=== PATIENT | male | born 1950 | race African-American/Black ===

== ENCOUNTER 2016-06-18 13:27 | Inpatient (IN) | payer MEDICARE ==
--- NOTE | ~2016-06-18 | OP ---
Record Of Operation [facility] [address] [place]. [address] NAME: KRISTINA GILMORE : 52 STATUS : ADM IN PAT#: [id number] AGE: 66 ADM/REG DATE : 06/18/16 MR#: [id number] REPORT SERV DATE: 06/19/16 DICTATED BY: NIC SHAH DATE: 06/18/16 REPORT STATUS : Draft TRANSCRIBED BY: MODL DATE: 06/18/16 DATE OF PROCEDURE: 06/18/2016 PREOPERATIVE DIAGNOSES: ST elevated myocardial infarction with left main coronary artery stenosis and persistent angina. POSTOPERATIVE DIAGNOSES: ST elevated myocardial infarction with left main coronary artery stenosis and persistent angina. OPERATIVE PROCEDURE: Emergent coronary artery bypass graft x4 with endoscopic vein harvest utilizing the left internal mammary artery to the LAD artery, reverse saphenous vein graft from aorta to the diagonal artery 1, from the aorta to the obtuse marginal artery, from the aorta to posterior descending artery. Also transesophageal echocardiography. OPERATIVE SURGEON: Nic Shah M.D. ANESTHESIA: General endotracheal anesthesia, AA. DRAINS: Chest tubes placed were 2. Pacing wires placed two on the ventricle and two on the right atrium. PERTINENT HISTORY: The patient is a 66-year-old gentleman, referred by Dr. Gore from the gold leaf laborer with ST elevated myocardial infarction, persistent angina, left main coronary artery stenosis. OPERATIVE FINDINGS: The patient has somewhat diffuse coronary artery disease with no valvular heart disease noted by transesophageal echocardiography. OPERATIVE PROCEDURE: The patient was taken to the operating room, placed in supine position. Anesthesia was obtained. The patient was prepped and draped in usual fashion. Transesophageal echocardiogram was performed demonstrating no significant valvular heart disease. The greater saphenous vein harvested to lower extremities with invasive technique, and those wounds closed in a two-layer fashion. Midline sternotomy incision was made. Sternum was divided. Left internal mammary artery was dissected and found to be in good flow. Heparin was infused and patient started on cardiopulmonary bypass. Cross-clamp was applied. Cardioplegia was infused in antegrade and retrograde fashion over a period of 15 minutes. The posterior descending artery was bypassed with reverse saphenous vein graft in end-to-side fashion. The obtuse marginal artery is bypassed with reversed saphenous vein graft in end-to-side fashion. Then the 1st diagonal artery was bypassed with the reverse saphenous vein graft in the end-to-side fashion. The left internal mammary artery was then used to bypass the LAD artery in the end-to-side fashion. Crossclamp was then placed. The 3 proximal anastomoses sewn to the ascending aorta. Cross-clamp was removed. The hemostasis was noted. Two pacing wires on the right ventricle, two on the right atrium, and two chest tubes were placed. The patient was warmed to 36 centigrade and maintained a sinus bradycardic rhythm. He underwent atrial pacing, was weaned from cardiopulmonary bypass without inotropic support. Protamine sulfate was infused. Hemostasis was adequate. Record Of Operation [facility] [address] [place]. [address] NAME: KRISTINA GILMORE : 51 STATUS : ADM IN [facility]#: [id number] AGE: 66 ADM/REG DATE : 06/18/16 MR#: [id number] REPORT SERV DATE: 06/19/16 DICTATED BY: NIC SHAH DATE: 06/18/16 REPORT STATUS : Draft TRANSCRIBED BY: FLOWER DATE: 06/18/16 Sternum was closed with four sternal cables. Soft tissue was closed in the manner stated above. The patient tolerated the procedure well, was taken back to the ICU in stable condition. ANN/FLOWER Nic Shah M.D. / [id number] CC: MD Daryl Rivers M.D., Ph.D, F.A.C.C.
--- NOTE | ~2016-06-18 | DS ---
Discharge Summary [facility] [address] [facility] [place]. [address] NAME: KRISTINA GILMORE : 52 STATUS : DIS IN PAT#: [id number] AGE: 66 ADM/REG DATE : 06/18/16 MR#: [id number] REPORT SERV DATE: 07/06/16 DICTATED BY: NIC SHAH DATE: 07/06/16 REPORT STATUS : Draft TRANSCRIBED BY: FLOWER DATE: 07/06/16 Data Collection from hospitalization DISCHARGE DIAGNOSES: 1. ST-elevation myocardial infarction. 2. Atrial fibrillation. 3. Coronary artery disease, status post coronary artery bypass grafting x4. 4. Third-degree atrioventricular block (resolved). 5. Hypertension. 6. Tobacco use. 7. Peripheral arterial disease. 8. Hyperlipidemia. CONSULTATIONS: Miguelangel Lancaster M.D. PROCEDURES PERFORMED: 1. Cardiac catheterization on 06/18/2016. 2. Emergent coronary artery bypass grafting x4 with endoscopic vein harvest utilizing the left internal mammary artery to the left anterior descending artery, reverse saphenous vein graft from the aorta to the diagonal artery 1, from the aorta to the obtuse marginal artery, from the aorta to the posterior descending artery and also transesophageal echocardiography on 06/18/2016. MEDICATIONS: Eliquis 5 mg twice a day, aspirin 81 mg daily, Lipitor 40 mg at bedtime, [place] 5/325 one to two tablets every six hours as needed, and Flores-Colace two tablets twice a day. CONDITION AT DISCHARGE: Stable. DISPOSITION: The patient was discharged home on an 1800-calorie cardiac/diabetic diet with activities as instructed. He would follow up with Dr. Daryl Willett two weeks following discharge. He would follow up with Dr. Nic Shah on 07/19/2016. He would follow up at cardiac rehab on 08/03/2016. HOSPITAL COURSE: This is a 66-year-old man who has a history of coronary artery disease, having had an ST elevation myocardial infarction in 2003, treated with percutaneous coronary intervention to the RCA. He developed the abrupt onset of chest pain similar to the 2004 symptoms with precordial chest pain and nausea at 3:00 p.m. He laid down and his symptoms waxed and waned overnight until the day of this admission when his symptoms worsened and he presented to the emergency room for evaluation around 10:00 a.m. His initial EKG showed high anterolateral ST elevation with some reciprocal inferior ST-segment depression. On questioning, the patient initially denied chest pain and repeat EKG demonstrated normalization of high anterolateral ST elevations. This appears to have been due to possible limb lead reversal with new ST elevation in the inferior leads. On further questioning, he said that he continued to feel poorly with vague precordial chest pain and some nausea. He has had no shortness of breath. He denied any palpitations, syncope, orthopnea, or edema. His last documented left ventricular ejection fraction in March of 2014 was 65% with no regional wall motion abnormalities. ACS protocol was started on arrival and he received a heparin bolus of IV heparin drip and aspirin. He was seen by Dr. Montelongo [address] [address] NAME: KRISTINA GILMORE : 51 STATUS : DIS IN PAT#: [id number] AGE: 66 ADM/REG DATE : 06/18/16 MR#: [id number] REPORT SERV DATE: 07/06/16 DICTATED BY: NIC SHAH DATE: 07/06/16 REPORT STATUS : Draft TRANSCRIBED BY: MODL DATE: 07/06/16 Miguelangel Lancaster. Initial troponin was 38. Creatinine level was 1.3. He was felt to have had an ST-elevation myocardial infarction. It was felt that he would need to undergo emergent coronary angiography and possible percutaneous coronary intervention. Serial troponins would be checked. Home medical therapy would be continued as previously outlined with a heparin drip and dual anti-platelet therapy, pending results of the cardiac catheterization. IV hydration would be provided for mild chronic kidney disease. He was admitted to the hospital at this time for further evaluation and treatment. Upon admission, he was taken to the cardiac laboratory scientist where he underwent the above-mentioned procedure. The patient had persistent chest pain. He was found to have left main coronary stenosis including disease involving the right coronary artery. It was felt that this patient would need to undergo emergent cardiac surgical intervention. He had persistent angina, but was hemodynamically stable. He was taken to the operating room where he underwent the above-mentioned procedure. He tolerated this well, and there were no complications. On postop day #1, he had been extubated and chest x-ray was clear. Creatinine level was 1.15. He said he felt better when he was sitting up. Supportive postop care continued. Cardene drip was being provided. We would continue to avoid AV eyal blocking agents. On postop day #2, he was up sitting in a chair. He was pacer dependent. Chest tubes were removed. He did have bilateral basilar rales. Blood pressure was controlled. He had no surgical issues at this time. He seemed to be recovering well. Atorvastatin was started. Pacer settings were adjusted. On 06/22/2016, he had no new complaints. He had no dizziness, chest pain, or shortness of breath. He was passing flatus. O2 saturation was 99% on room air. Wound VAC was in place. On 06/23/2016, heparin drip was started. This would be continued until the pacing wires were removed. His wounds looked okay. Creatinine level was 1.0. He did have a bowel movement. He was tolerating oral intake. The next day, discharge planning was performed. He saturation was 95% on room air. Creatinine level was 1.0. He had no bradycardia overnight. Heparin was held and pacing wires were removed. Heparin would be restarted four hours after pacing wires were removed. He has an ejection fraction of 60%-65%. Telemetry revealed atrial fibrillation in the 70s - low 100s. He had no palpitations or shortness of breath. Aspirin was continued. Statin agent was added. On 06/25/2016, he remained in atrial fibrillation on telemetry. Pacing wires had been removed. He had no further bradyarrhythmias. Eliquis was started. We would consider DC cardioversion if the patient did not spontaneously convert. Beta-martell was held. Third degree AV block had resolved. Discharge instructions were given. Due to his improved and stable condition, he was discharged home with the above-stated instructions. Information collected by: Rachel Lui I submit the above information as my discharge summary. RUSS/MODCuca Nic Shah M.D. / [id number] Discharge Summary [address] [address] NAME: KRISTINA GILMORE : 52 STATUS : DIS IN PAT#: [id number] AGE: 66 ADM/REG DATE : 06/18/16 MR#: [id number] REPORT SERV DATE: 07/06/16 DICTATED BY: NIC SHAH DATE: 07/06/16 REPORT STATUS : Draft TRANSCRIBED BY: FLOWER DATE: 07/06/16 CC: MD Lenny Rivers M.D. Allen E Atchley, M.D.
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
--- NOTE | ~2016-06-18 | PRECARD ---
H&P [facility] [address] [facility] [place]. [address] NAME: KRISTINA BHATT : 52 STATUS : REG ER PAT#: [id number] AGE: 66 ADM/REG DATE : 06/18/16 MR#: [id number] REPORT SERV DATE: 06/18/16 DICTATED BY: MIGUELANGEL JONES DATE: 06/18/16 REPORT STATUS : Draft TRANSCRIBED BY: MODCuca DATE: 06/18/16 DATE OF ADMISSION: 06/18/2016 ADMISSION REASON: ST-elevation CA. HISTORY OF PRESENT ILLNESS: Mr. Bhatt is a 66-year-old male with a known history of coronary artery disease, having had an ST-elevation CA in 2003, treated with PCI to the RCA, who had abrupt-onset chest pain similar to the 2004 symptoms with precordial chest pain and nausea at 3:00 p.m. yesterday. He laid down and his symptoms waxed and waned overnight until today his symptoms worsened and he presented to the ER for further evaluation around 10:00 a.m. His initial EKG showed high anterolateral ST elevation with some reciprocal inferior ST-segment depression. On questioning, the patient initially denied chest pain and a repeat EKG demonstrated normalization of high anterolateral ST elevations; this appears to have been due to possible limb lead reversal with new ST elevation in the inferior leads. On further questioning, he states that he continues to feel poorly with vague precordial chest pain and some nausea. He has had no shortness of breath. He denies palpitations, syncope, orthopnea, or edema. Last documented LVEF in 03/2014 was 65% with no regional wall motion abnormalities. ACS protocol was started on arrival and he received a heparin bolus of IV heparin drip and aspirin. REVIEW OF SYSTEMS: Pertinent positives and negatives as outlined above, all others are negative. PAST MEDICAL HISTORY: 1. CAD, status post CA and PCI in 2003. 2. Peripheral arterial disease with previous iliac stenting. 3. Hypertension. 4. Hyperlipidemia. 5. Tobacco use. HOME MEDICATIONS: 1. Coreg 12.5 mg twice daily. 2. Irbesartan 300 mg daily. 3. Amlodipine 5 mg daily. 4. Aspirin 81 mg daily. 5. Sertraline 100 mg daily, which he was not actively taking due to difficulty obtaining for cost reasons. ALLERGIES: NO KNOWN DRUG ALLERGIES. SOCIAL HISTORY: He is retired. He has ongoing tobacco use at one-half pack per day. He does not consume alcohol or use illegal drugs. FAMILY HISTORY: Significant for CAD. PHYSICAL EXAMINATION: [facility] [id number] [facility] [place]. [address] NAME: KRISTINA BHATT : 52 STATUS : REG ER PAT#: [id number] AGE: 66 ADM/REG DATE : 06/18/16 MR#: [id number] REPORT SERV DATE: 06/18/16 DICTATED BY: MIGUELANGEL JONES DATE: 06/18/16 REPORT STATUS : Draft TRANSCRIBED BY: FLOWER DATE: 06/18/16 VITALS: Temp is afebrile, pulse is 50, respirations 16, and BP is 150/90. MENTAL STATUS: Awake, alert, and oriented x3. PSYCH: Euthymic, normal affect. GENERAL: Well appearing and in no distress. HEENT: Sclerae anicteric, mucous membranes moist and without lesions. NECK: No jugular venous distention. No hepatojugular reflux, carotid upstrokes 2+ and symmetric, there are no carotid or subclavian bruit. LUNGS: Clear to auscultation without wheezes, crackles, or rales. CARDIOVASCULAR: Regular with normal S1 and S2, no murmurs, no S3 or S4, no parasternal lift, PMI is nondisplaced and nonsustained. ABDOMEN: Soft and nontender. Bowel sounds positive and normoactive. No hepatomegaly, no masses, no abdominal bruit. PULSES: Radial and dorsalis pedis pulses 2+ and symmetric. EXTREMITIES: Warm and without edema. SKIN: No clubbing or cyanosis, no rashes or lesions. ACCESSORY DATA: Initial troponin was 38. Creatinine is 1.3. CBC is unremarkable. IMPRESSION: 1. ST-elevation myocardial infarction. 2. Coronary artery disease, status post old myocardial infarction and percutaneous coronary intervention. 3. Hypertension. 4. Hyperlipidemia. 5. Peripheral arterial disease. 6. Tobacco use. PLAN: 1. Emergent coronary angiography and possibly PCI. 2. Serial troponins. 3. Continue home medical therapy as previously outlined with heparin drip and dual antiplatelet therapy pending results of his cardiac catheterization. 4. Labs in a.m. 5. IV hydration for mild CKD. CONSENT: Risks and benefits of cardiac catheterization were discussed with Mr. Bhatt. He was informed of emergent need for cardiac catheterization. The risks include bleeding, infection, vascular access trauma, allergic reaction to contrast dye, and a 1% chance of major complications such as stroke were all covered. After this, informed consent was obtained and he agreed to proceed. MADELIN/FLOWER Miguelangel Jones M.D. [facility] [address] [address] NAME: KRISTINA BHATT : 52 STATUS : REG ER PAT#: [id number] AGE: 66 ADM/REG DATE : 06/18/16 MR#: [id number] REPORT SERV DATE: 06/18/16 DICTATED BY: MIGUEALNGEL JONES. DATE: 06/18/16 REPORT STATUS : Draft TRANSCRIBED BY: FLOWER DATE: 06/18/16 / [id number] CC: Champ Broussard M.D.
[2016-06-18 12:20] LABS: BASOPHILS 0.2 %; BASOPHILS ABSOLUTE 0.02 10/3/uL (0.0-0.16); EOSINOPHILS 0.3 %; EOSINOPHILS ABSOLUTE 0.03 10/3/uL (0.0-0.53); HEMATOCRIT 42.3 % (40.0-51.0); IMMATURE GRANULOCYTES 0.1 %; IMMATURE GRANULOCYTES ABSOLUTE 0.01 10/3/uL (0.0-0.11); LYMPHOCYTES 24.7 %; LYMPHOCYTES ABSOLUTE 2.68 10/3/uL (0.67-4.30); MANUAL DIFF NO %; MEAN CORPUS HGB CONC 35.5 g/dL (32.0-36.0); MEAN CORPUSCULAR HEMOGLOB 31.6 pg (26.0-34.0); MEAN CORPUSCULAR VOLUME 89.2 fL (80-100); MEAN PLATELET VOLUME 10.4 fL (9.2-13.0); MONOCYTES 8.1 %; MONOCYTES ABSOLUTE 0.88 10/3/uL (0.21-1.20); NEUTROPHILS 66.6 %; NEUTROPHILS ABSOLUTE 7.24 10/3/uL (2.02-8.40); PLATELET COUNT 186 10/3/uL (150-400); RBC DISTRIBUTION WIDTH 13.8 % (12.0-16.0); RED CELL COUNT 4.74 10/6/uL (4.7-6.1); WHITE BLOOD CELLS 10.9 10/3/uL (4.5-10.5)
[2016-06-18 12:37] LABS: BUN (BLOOD UREA NITROGEN) 9 MG/DL (6-23); CALCIUM, SERUM 8.8 MG/DL (8.5-10.4); CHLORIDE, SERUM 108 MMOL/L (96-112); CO2 (CARBON DIOXIDE) 28 MMOL/L (24-34); CREATININE 1.31 MG/DL (0.70-1.30); GFR AFRICAN AMERICAN 66 ML/MIN (>=60); GFR NON AFRICAN AMERICAN 57 ML/MIN (>=60); INTERNATIONAL NORMAL RATI 1.1 UNITS (-); PARTIAL THROMBO TIME 30.9 SEC (22.5-37.2); SODIUM, SERUM 141 MMOL/L (135-148)
[2016-06-18 12:39] LABS: GLUCOSE, SERUM 135 MG/DL (60-99); POTASSIUM, SERUM 3.6 MMOL/L (3.5-5.3)
[2016-06-18 12:40] LABS: CHEST PAIN PROFILE TAT 0 Hrs 24 Mins
[~2016-06-18 13:27] MED LIST: ASAB PO; LAN125 PO; LISINOPRIL40 MG PO; LOP50 PO; NITROSTAT0.4 MG SL; NORV5 PO; REG PO; ZOCOR20 PO
[2016-06-18 20:48] LABS: INSTRUMENT SERIAL # 11843
[2016-06-18 20:49] LABS: BE (BASE EXCESS) -4.1 MEQ/L (0 +/- 2.5); CARBOXYHEMOGLOBIN 0.3 % (0-3); HEMOBLOGIN CONTENT 13.3 G/DL (14-18); METHEMOGLOBIN 0.6 % (0-3); MODE SIMV; O2 CONTENT 19.2 VOL% (18-24); OPERATOR ID 32193; PCO2 (CO2 TENSION) 38 MMHG (35-45); PO2 (O2 TENSION) 342 MMHG (79-93); SAMPLE Arterial; TIDAL VOLUME 650 ML; pH 7.36 (7.37-7.43)
[2016-06-18 20:55] LABS: BASOPHILS 0.2 %; BASOPHILS ABSOLUTE 0.02 10/3/uL (0.0-0.16); EOSINOPHILS 0.1 %; EOSINOPHILS ABSOLUTE 0.01 10/3/uL (0.0-0.53); HEMATOCRIT 35.8 % (40.0-51.0); HEMOGLOBIN 12.5 g/dL (13.6-17.8); IMMATURE GRANULOCYTES 0.4 %; IMMATURE GRANULOCYTES ABSOLUTE 0.04 10/3/uL (0.0-0.11); LYMPHOCYTES 11.7 %; LYMPHOCYTES ABSOLUTE 1.31 10/3/uL (0.67-4.30); MANUAL DIFF NO %; MEAN CORPUS HGB CONC 34.9 g/dL (32.0-36.0); MEAN CORPUSCULAR HEMOGLOB 31.2 pg (26.0-34.0); MEAN CORPUSCULAR VOLUME 89.3 fL (80-100); MEAN PLATELET VOLUME 10.4 fL (9.2-13.0); MONOCYTES 6.7 %; MONOCYTES ABSOLUTE 0.75 10/3/uL (0.21-1.20); NEUTROPHILS 80.9 %; NEUTROPHILS ABSOLUTE 9.05 10/3/uL (2.02-8.40); PLATELET COUNT 108 10/3/uL (150-400); RBC DISTRIBUTION WIDTH 13.8 % (12.0-16.0); RED CELL COUNT 4.01 10/6/uL (4.7-6.1); WHITE BLOOD CELLS 11.2 10/3/uL (4.5-10.5)
[2016-06-18 21:02] LABS: INTERNATIONAL NORMAL RATI 1.5 UNITS (-); PARTIAL THROMBO TIME 33.9 SEC (22.5-37.2)
[2016-06-18 21:06] LABS: PROTIME (NOT ORD) 17.9 SEC (12.0-14.5)
[2016-06-18 21:23] LABS: BUN (BLOOD UREA NITROGEN) 8 MG/DL (6-23); CALCIUM, SERUM 8.4 MG/DL (8.5-10.4); CHLORIDE, SERUM 118 MMOL/L (96-112); CO2 (CARBON DIOXIDE) 25 MMOL/L (24-34); CREATININE 1.03 MG/DL (0.70-1.30); GFR AFRICAN AMERICAN 88 ML/MIN (>=60); GFR NON AFRICAN AMERICAN 76 ML/MIN (>=60); GLUCOSE, SERUM 50 MG/DL (60-99); POTASSIUM, SERUM 3.9 MMOL/L (3.5-5.3); SODIUM, SERUM 149 MMOL/L (135-148)
[2016-06-19 01:12] LABS: BE (BASE EXCESS) -4.6 MEQ/L (0 +/- 2.5); CARBOXYHEMOGLOBIN 0.2 % (0-3); DEVICE NC; HCO3 (ACTUAL BICARBONATE) 21.2 MEQ/L (23-27); HEMOBLOGIN CONTENT 13.6 G/DL (14-18); INSTRUMENT SERIAL # 11843; METHEMOGLOBIN 0.6 % (0-3); O2 CONTENT 18.4 VOL% (18-24); OPERATOR ID 32193; PCO2 (CO2 TENSION) 42 MMHG (35-45); PO2 (O2 TENSION) 95 MMHG (79-93); SAMPLE Arterial; pH 7.32 (7.37-7.43)
[2016-06-19 03:33] LABS: HEMATOCRIT 36.3 % (40.0-51.0); HEMOGLOBIN 12.6 g/dL (13.6-17.8); MEAN CORPUS HGB CONC 34.7 g/dL (32.0-36.0); MEAN CORPUSCULAR HEMOGLOB 31.1 pg (26.0-34.0); MEAN CORPUSCULAR VOLUME 89.6 fL (80-100); MEAN PLATELET VOLUME 10.8 fL (9.2-13.0); PLATELET COUNT 130 10/3/uL (150-400); RBC DISTRIBUTION WIDTH 13.9 % (12.0-16.0); RED CELL COUNT 4.05 10/6/uL (4.7-6.1)
[2016-06-19 03:39] LABS: MANUAL DIFF YES %
[2016-06-19 03:46] LABS: BUN (BLOOD UREA NITROGEN) 10 MG/DL (6-23); CALCIUM, SERUM 8.2 MG/DL (8.5-10.4); CHLORIDE, SERUM 118 MMOL/L (96-112); CO2 (CARBON DIOXIDE) 22 MMOL/L (24-34); CREATININE 1.15 MG/DL (0.70-1.30); GFR AFRICAN AMERICAN 77 ML/MIN (>=60); GFR NON AFRICAN AMERICAN 66 ML/MIN (>=60); INTERNATIONAL NORMAL RATI 1.3 UNITS (-); POTASSIUM, SERUM 3.7 MMOL/L (3.5-5.3); PROTIME (NOT ORD) 16.5 SEC (12.0-14.5); SODIUM, SERUM 149 MMOL/L (135-148)
[2016-06-19 03:47] LABS: GLUCOSE, SERUM 81 MG/DL (60-99)
[2016-06-19 04:23] LABS: BAND NEUTROPHILS 2 %; IMMATURE GRANS ABSOLUTE (CALC) 0.23 10/3/uL (0.0-0.11); LYMPHOCYTES 3 %; LYMPHOCYTES ABSOLUTE (CALC) 0.69 10/3/uL (0.67-4.30); METAMYELOCYTES 1 %; MONOCYTES 3 %; MONOCYTES ABSOLUTE (CALC) 0.69 10/3/uL (0.21-1.20); NEUTROPHILS ABSOLUTE (CALC) 21.39 10/3/uL (2.02-8.40); PLATELET ESTIMATE SLT DEC (ADEQUATE); RBC MORPHOLOGY NORM (NORMAL); SEGMENTED NEUTROPHIL (0) 91 %; TOTAL NUCLEATED CELLS 100
[2016-06-19 15:27] LABS: HEMATOCRIT 33.7 % (40.0-51.0); HEMOGLOBIN 11.9 g/dL (13.6-17.8)
[2016-06-19 15:36] LABS: POTASSIUM, SERUM 4.1 MMOL/L (3.5-5.3)
[2016-06-19] MEDS ORDERED: *DENIES (18:08)
[2016-06-20 03:28] LABS: HEMATOCRIT 32.7 % (40.0-51.0); HEMOGLOBIN 11.6 g/dL (13.6-17.8); MEAN CORPUS HGB CONC 35.5 g/dL (32.0-36.0); MEAN CORPUSCULAR HEMOGLOB 31.1 pg (26.0-34.0); MEAN CORPUSCULAR VOLUME 87.7 fL (80-100); MEAN PLATELET VOLUME 10.9 fL (9.2-13.0); PLATELET COUNT 104 10/3/uL (150-400); RBC DISTRIBUTION WIDTH 14.1 % (12.0-16.0); RED CELL COUNT 3.73 10/6/uL (4.7-6.1)
[2016-06-20 03:31] LABS: MANUAL DIFF YES %
[2016-06-20 03:38] LABS: CALCIUM, SERUM 8.6 MG/DL (8.5-10.4); CHLORIDE, SERUM 109 MMOL/L (96-112); CO2 (CARBON DIOXIDE) 23 MMOL/L (24-34); CREATININE 0.92 MG/DL (0.70-1.30); GFR AFRICAN AMERICAN 101 ML/MIN (>=60); GFR NON AFRICAN AMERICAN 87 ML/MIN (>=60); GLUCOSE, SERUM 75 MG/DL (60-99); POTASSIUM, SERUM 4.1 MMOL/L (3.5-5.3)
[2016-06-20 03:39] LABS: BUN (BLOOD UREA NITROGEN) 14 MG/DL (6-23); SODIUM, SERUM 140 MMOL/L (135-148)
[2016-06-20 04:18] LABS: BAND NEUTROPHILS 11 %; IMMATURE GRANS ABSOLUTE (CALC) 0.26 10/3/uL (0.0-0.11); LYMPHOCYTES 7 %; LYMPHOCYTES ABSOLUTE (CALC) 1.82 10/3/uL (0.67-4.30); METAMYELOCYTES 1 %; MONOCYTES 3 %; MONOCYTES ABSOLUTE (CALC) 0.78 10/3/uL (0.21-1.20); NEUTROPHILS ABSOLUTE (CALC) 23.14 10/3/uL (2.02-8.40); PLATELET ESTIMATE SLT DEC (ADEQUATE); SEGMENTED NEUTROPHIL (0) 78 %; TOTAL NUCLEATED CELLS 100
[2016-06-20 04:19] LABS: RBC MORPHOLOGY NORM (NORMAL)
[2016-06-21 04:02] LABS: BASOPHILS 0.1 %; BASOPHILS ABSOLUTE 0.01 10/3/uL (0.0-0.16); EOSINOPHILS 0 %; HEMATOCRIT 32.2 % (40.0-51.0); HEMOGLOBIN 11.5 g/dL (13.6-17.8); IMMATURE GRANULOCYTES 0.4 %; IMMATURE GRANULOCYTES ABSOLUTE 0.08 10/3/uL (0.0-0.11); LYMPHOCYTES 6.4 %; LYMPHOCYTES ABSOLUTE 1.28 10/3/uL (0.67-4.30); MEAN CORPUS HGB CONC 35.7 g/dL (32.0-36.0); MEAN CORPUSCULAR HEMOGLOB 31.3 pg (26.0-34.0); MEAN CORPUSCULAR VOLUME 87.5 fL (80-100); MEAN PLATELET VOLUME 11.1 fL (9.2-13.0); MONOCYTES 5.3 %; MONOCYTES ABSOLUTE 1.05 10/3/uL (0.21-1.20); NEUTROPHILS 87.8 %; NEUTROPHILS ABSOLUTE 17.58 10/3/uL (2.02-8.40); PLATELET COUNT 111 10/3/uL (150-400); RBC DISTRIBUTION WIDTH 13.9 % (12.0-16.0); RED CELL COUNT 3.68 10/6/uL (4.7-6.1)
[2016-06-21 04:06] LABS: MANUAL DIFF NO %
[2016-06-21 04:11] LABS: CALCIUM, SERUM 8.8 MG/DL (8.5-10.4); CHLORIDE, SERUM 106 MMOL/L (96-112); CO2 (CARBON DIOXIDE) 24 MMOL/L (24-34); CREATININE 1.08 MG/DL (0.70-1.30); GFR AFRICAN AMERICAN 83 ML/MIN (>=60); GFR NON AFRICAN AMERICAN 72 ML/MIN (>=60); POTASSIUM, SERUM 4.9 MMOL/L (3.5-5.3); SODIUM, SERUM 137 MMOL/L (135-148)
[2016-06-21 04:12] LABS: BUN (BLOOD UREA NITROGEN) 21 MG/DL (6-23); GLUCOSE, SERUM 138 MG/DL (60-99)
[2016-06-22 03:50] LABS: BASOPHILS 0.1 %; BASOPHILS ABSOLUTE 0.01 10/3/uL (0.0-0.16); EOSINOPHILS 0 %; HEMOGLOBIN 11.5 g/dL (13.6-17.8); IMMATURE GRANULOCYTES 0.3 %; IMMATURE GRANULOCYTES ABSOLUTE 0.04 10/3/uL (0.0-0.11); LYMPHOCYTES 13.9 %; LYMPHOCYTES ABSOLUTE 1.85 10/3/uL (0.67-4.30); MEAN CORPUS HGB CONC 35.9 g/dL (32.0-36.0); MEAN CORPUSCULAR HEMOGLOB 31.8 pg (26.0-34.0); MEAN CORPUSCULAR VOLUME 88.4 fL (80-100); NEUTROPHILS 79.7 %; NEUTROPHILS ABSOLUTE 10.63 10/3/uL (2.02-8.40); PLATELET COUNT 108 10/3/uL (150-400); RBC DISTRIBUTION WIDTH 13.4 % (12.0-16.0); RED CELL COUNT 3.62 10/6/uL (4.7-6.1); WHITE BLOOD CELLS 13.3 10/3/uL (4.5-10.5)
[2016-06-22 03:54] LABS: MANUAL DIFF NO %
[2016-06-22 04:03] LABS: BUN (BLOOD UREA NITROGEN) 20 MG/DL (6-23); CALCIUM, SERUM 8.3 MG/DL (8.5-10.4); CHLORIDE, SERUM 106 MMOL/L (96-112); CO2 (CARBON DIOXIDE) 27 MMOL/L (24-34); CREATININE 1.08 MG/DL (0.70-1.30); GFR AFRICAN AMERICAN 83 ML/MIN (>=60); GFR NON AFRICAN AMERICAN 72 ML/MIN (>=60); GLUCOSE, SERUM 105 MG/DL (60-99); POTASSIUM, SERUM 4.3 MMOL/L (3.5-5.3); SODIUM, SERUM 141 MMOL/L (135-148)
[2016-06-23 04:28] LABS: BASOPHILS 0 %; EOSINOPHILS 0.4 %; EOSINOPHILS ABSOLUTE 0.04 10/3/uL (0.0-0.53); HEMATOCRIT 32.8 % (40.0-51.0); HEMOGLOBIN 11.7 g/dL (13.6-17.8); IMMATURE GRANULOCYTES 0.4 %; IMMATURE GRANULOCYTES ABSOLUTE 0.04 10/3/uL (0.0-0.11); LYMPHOCYTES ABSOLUTE 2.37 10/3/uL (0.67-4.30); MEAN CORPUS HGB CONC 35.7 g/dL (32.0-36.0); MEAN CORPUSCULAR HEMOGLOB 31.5 pg (26.0-34.0); MEAN CORPUSCULAR VOLUME 88.2 fL (80-100); MEAN PLATELET VOLUME 10.4 fL (9.2-13.0); MONOCYTES 9.9 %; MONOCYTES ABSOLUTE 0.94 10/3/uL (0.21-1.20); NEUTROPHILS 64.3 %; NEUTROPHILS ABSOLUTE 6.09 10/3/uL (2.02-8.40); PLATELET COUNT 120 10/3/uL (150-400); RBC DISTRIBUTION WIDTH 13.4 % (12.0-16.0); RED CELL COUNT 3.72 10/6/uL (4.7-6.1); WHITE BLOOD CELLS 9.5 10/3/uL (4.5-10.5)
[2016-06-23 04:29] LABS: MANUAL DIFF NO %
[2016-06-23 04:40] LABS: CALCIUM, SERUM 8.3 MG/DL (8.5-10.4); CHLORIDE, SERUM 106 MMOL/L (96-112); CO2 (CARBON DIOXIDE) 26 MMOL/L (24-34); CREATININE 1.02 MG/DL (0.70-1.30); GFR AFRICAN AMERICAN 89 ML/MIN (>=60); GFR NON AFRICAN AMERICAN 77 ML/MIN (>=60); GLUCOSE, SERUM 92 MG/DL (60-99); POTASSIUM, SERUM 4.1 MMOL/L (3.5-5.3); SODIUM, SERUM 140 MMOL/L (135-148)
[2016-06-23 04:41] LABS: BUN (BLOOD UREA NITROGEN) 15 MG/DL (6-23)
[2016-06-24 01:53] LABS: HEMATOCRIT 30.8 % (40.0-51.0); HEMOGLOBIN 10.9 g/dL (13.6-17.8); MEAN CORPUS HGB CONC 35.4 g/dL (32.0-36.0); MEAN CORPUSCULAR HEMOGLOB 31.1 pg (26.0-34.0); MEAN CORPUSCULAR VOLUME 87.7 fL (80-100); MEAN PLATELET VOLUME 10.3 fL (9.2-13.0); PLATELET COUNT 131 10/3/uL (150-400); RBC DISTRIBUTION WIDTH 13.4 % (12.0-16.0); RED CELL COUNT 3.51 10/6/uL (4.7-6.1); WHITE BLOOD CELLS 11.4 10/3/uL (4.5-10.5)
[2016-06-24 01:54] LABS: MANUAL DIFF YES %
[2016-06-24 02:05] LABS: BUN (BLOOD UREA NITROGEN) 13 MG/DL (6-23); CALCIUM, SERUM 8.2 MG/DL (8.5-10.4); CHLORIDE, SERUM 108 MMOL/L (96-112); CO2 (CARBON DIOXIDE) 25 MMOL/L (24-34); CREATININE 1.03 MG/DL (0.70-1.30); GFR AFRICAN AMERICAN 88 ML/MIN (>=60); GFR NON AFRICAN AMERICAN 76 ML/MIN (>=60); GLUCOSE, SERUM 105 MG/DL (60-99); POTASSIUM, SERUM 3.7 MMOL/L (3.5-5.3); SODIUM, SERUM 142 MMOL/L (135-148)
[2016-06-24 02:16] LABS: LYMPHOCYTES 27 %; LYMPHOCYTES ABSOLUTE (CALC) 3.08 10/3/uL (0.67-4.30); MONOCYTES 6 %; MONOCYTES ABSOLUTE (CALC) 0.68 10/3/uL (0.21-1.20); NEUTROPHILS ABSOLUTE (CALC) 7.64 10/3/uL (2.02-8.40); PLATELET ESTIMATE SLT DEC (ADEQUATE); SEGMENTED NEUTROPHIL (0) 67 %; TOTAL NUCLEATED CELLS 100
[2016-06-24 02:18] LABS: RBC MORPHOLOGY NORM (NORMAL)
[2016-06-25 03:50] LABS: BASOPHILS 0.3 %; BASOPHILS ABSOLUTE 0.03 10/3/uL (0.0-0.16); EOSINOPHILS 1.3 %; EOSINOPHILS ABSOLUTE 0.14 10/3/uL (0.0-0.53); HEMATOCRIT 30.6 % (40.0-51.0); HEMOGLOBIN 10.9 g/dL (13.6-17.8); IMMATURE GRANULOCYTES 1.2 %; IMMATURE GRANULOCYTES ABSOLUTE 0.13 10/3/uL (0.0-0.11); LYMPHOCYTES 28.7 %; LYMPHOCYTES ABSOLUTE 3.18 10/3/uL (0.67-4.30); MEAN CORPUS HGB CONC 35.6 g/dL (32.0-36.0); MEAN CORPUSCULAR HEMOGLOB 31.4 pg (26.0-34.0); MEAN CORPUSCULAR VOLUME 88.2 fL (80-100); MEAN PLATELET VOLUME 10.5 fL (9.2-13.0); MONOCYTES 8.7 %; MONOCYTES ABSOLUTE 0.96 10/3/uL (0.21-1.20); NEUTROPHILS 59.8 %; NEUTROPHILS ABSOLUTE 6.63 10/3/uL (2.02-8.40); RBC DISTRIBUTION WIDTH 13.6 % (12.0-16.0); RED CELL COUNT 3.47 10/6/uL (4.7-6.1); WHITE BLOOD CELLS 11.1 10/3/uL (4.5-10.5)
[2016-06-25 04:04] LABS: MANUAL DIFF NO %; PLATELET COUNT 171 10/3/uL (150-400)
[2016-06-25 04:08] LABS: CALCIUM, SERUM 8.3 MG/DL (8.5-10.4); CHLORIDE, SERUM 108 MMOL/L (96-112); CO2 (CARBON DIOXIDE) 26 MMOL/L (24-34); CREATININE 0.98 MG/DL (0.70-1.30); GFR AFRICAN AMERICAN 93 ML/MIN (>=60); GFR NON AFRICAN AMERICAN 81 ML/MIN (>=60); GLUCOSE, SERUM 100 MG/DL (60-99); POTASSIUM, SERUM 4.1 MMOL/L (3.5-5.3); SODIUM, SERUM 141 MMOL/L (135-148)
[2016-06-25 04:12] LABS: BUN (BLOOD UREA NITROGEN) 8 MG/DL (6-23)
[2016-06-25] MEDS ORDERED: NORCO1 TA1 PO (15:52)
[2016-06-25] MEDS ORDERED: PERI-COLACE1 TAB PO (15:53)
[2016-06-25] MEDS ORDERED: LIPITOR40 PO (15:55)
[2016-06-25] MEDS ORDERED: ELIQUIS 5 MG TAB5 MG PO (15:55)
[2016-06-25] MEDS ORDERED: ASAB PO (15:55)
== END 2016-06-25 17:20 | disposition home or self-care (01) | DRG 234 ==
LOC: CORLMH 13:27 → SDC/OF 16:18 → CVICU 17:06 → 5NO 06-23 14:12
PROVIDERS: Anesthesiology; Emergency Medicine; Internal Medicine Cardiovascular Disease; Nurse Practitioner Family; Thoracic Surgery (Cardiothoracic Vascular Surgery)
PROC: 06BP0ZZ Excision of Right Saphenous Vein, Open Approach (ICD-10-PCS; 2016-06-18)
PROC: B2111ZZ Fluoroscopy of Multiple Coronary Arteries using Low Osmolar Contrast (ICD-10-PCS; 2016-06-18)
PROC: B2151ZZ Fluoroscopy of Left Heart using Low Osmolar Contrast (ICD-10-PCS; 2016-06-18)
PROC: 5A1221Z Performance of Cardiac Output, Continuous (ICD-10-PCS; 2016-06-18)
PROC: B246ZZ4 Ultrasonography of Right and Left Heart, Transesophageal (ICD-10-PCS; 2016-06-18)
PROC: 4A023N7 Measurement of Cardiac Sampling and Pressure, Left Heart, Percutaneous Approach (ICD-10-PCS; principal; 2016-06-18 15:45)
PROC: 021209W Bypass Coronary Artery, Three Arteries from Aorta with Autologous Venous Tissue, Open Approach (ICD-10-PCS; 2016-06-18 15:45)
PROC: 0210099 Bypass Coronary Artery, One Artery from Left Internal Mammary with Autologous Venous Tissue, Open Approach (ICD-10-PCS; 2016-06-18 15:45)
DX: I21.3 ST elevation (STEMI) myocardial infarction of unspecified site (principal); I44.2 Atrioventricular block, complete; I48.91 Unspecified atrial fibrillation; I97.89 Other postprocedural complications and disorders of the circulatory system, not elsewhere classified; I25.10 Atherosclerotic heart disease of native coronary artery without angina pectoris; I25.2 Old myocardial infarction; E78.5 Hyperlipidemia, unspecified; F17.210 Nicotine dependence, cigarettes, uncomplicated; Z79.899 Other long term (current) drug therapy; Z79.82 Long term (current) use of aspirin; Z95.5 Presence of coronary angioplasty implant and graft; Z95.820 Peripheral vascular angioplasty status with implants and grafts; I12.9 Hypertensive chronic kidney disease with stage 1 through stage 4 chronic kidney disease, or unspecified chronic kidney disease; N18.2 Chronic kidney disease, stage 2 (mild)
CPT/HCPCS: 36415; 71010; 80048; 82330; 82803; 82805; 82947; 82962; 83036; 83735; 84132; 84295; 84443; 84484; 85014; 85018; 85025; 85347; 85610; 85730; 86850; 86900; 86901; 86920; 87641; 93005; 93312; 93320; 93325; 93459; 94002; 94640; 94660; 94770; 96365; 99152; 99153; 99285; A9270-GY; C1713; C1725; C1751; C1769; C1781; C1887; C1894; J0690; J1644; J2150; J2250; J2370; J2440; J2720; J2930; J3010; J3370; J3475; J3480; P9045; P9047; Q9967